=== PATIENT | male | born 1985 | race Caucasian/White ===

== ENCOUNTER 2017-03-26 13:25 | Emergency (ER) | payer OTHER ==
[2017-03-26 14:05] VITALS: BP 135/84
--- NOTE | 2017-03-26 15:37 | Emergency Department Report ---
ED General Adult HPI - General Chief complaint: Headache Stated complaint: FEVER/MIGRAINE/SORE THROAT Time Seen by Provider: 03/26/17 14:57 Source: patient Mode of arrival: Ambulatory Limitations: Language Barrier - History of Present Illness -: days(s) Associated Symptoms: fever/chills - Related Data Allergies Allergy/AdvReac Type Severity Reaction Status Date / Time No Known Allergies Allergy Unverified 03/26/17 14:05 ED Review of Systems ROS: Stated complaint: FEVER/MIGRAINE/SORE THROAT Other details as noted in HPI Constitutional: fever ENT: throat pain Neurological: headache ED Past Medical Hx - Past Medical History Previous Medical History?: No - Surgical History Past Surgical History?: No - Social History Smoking Status: Never Smoker Substance Use Type: None ED Physical Exam - General Limitations: Language Barrier General appearance: alert, in no apparent distress - Head Head exam: Present: atraumatic, normocephalic - Neurological Exam Neurological exam: Present: alert, normal gait ED Course Vital Signs 03/26/17 13:57 Temperature 98.6 F Pulse Rate 125 H Respiratory 18 Rate Blood Pressure 135/84 O2 Sat by Pulse 99 Oximetry - Reevaluation(s) Reevaluation #1: 03/26/17 15:00 drying can worker called. Reevaluation #2: 03/26/17 15:47 At bedside with student outreach coordinator, pt not in room. Reevaluation #3: 03/26/17 17:12 pt eloped - Pulse Oximetry Interpretation Digit-Finger Initial Pulse Oximetry Readin Actions Taken: none Critical care attestation.: If time is entered above; I have spent that time in minutes in the direct care of this critically ill patient, excluding procedure time. ED Disposition Clinical Impression: Fever Qualifiers: Fever type: unspecified Qualified Code(s): R50.9 - Fever, unspecified Disposition: Z-07 ELOPED Is pt being admited?: No Does the pt Need Aspirin: No Condition: Stable Referrals: PRIMARY CARE, [Primary Care Provider] - 3-5 Days Time of Disposition: 17:13
--- NOTE | 2017-03-29 11:32 | ED Elopement Review ---
ED Pt Elopement review - Call Back decision Pt Call Back Decision: No action required
== END 2017-03-26 15:20 | disposition left against medical advice (07) ==
LOC: ED 13:25
DX: R50.9 Fever, unspecified (principal); R51 Headache
CPT/HCPCS: 99281

== ENCOUNTER 2022-05-06 10:13 | Outpatient (CLI) | payer OTHER ==
[2022-05-06 14:27] LABS: Chol/HDL Ratio 4.52 %
== END 2022-05-06 10:14 | disposition home or self-care (01) ==
LOC: LABHHL 10:13
PROVIDERS: ATTEND Internal Medicine
DX: E11.65 Type 2 diabetes mellitus with hyperglycemia (principal); E78.5 Hyperlipidemia, unspecified
CPT/HCPCS: 36415; 80061; 83036